=== PATIENT | female | born 1955 | race Caucasian/White ===

== ENCOUNTER 2016-10-29 03:46 | Emergency (ER) | payer OTHER ==
[~2016-10-29] VITALS: Ht 167.6 cm; Wt 82.4 kg
[~2016-10-29 03:46] MED LIST: HYDR25TA6 PO; LEVO100T PO; LIOT5TAB6 PO; LISI-167 PO
[2016-10-29] MEDS ORDERED: LOSARTIN (04:09)
[2016-10-29] MEDS ORDERED: DIPHENHYDRAMINE 25 MG CAPSULE ONE (04:12)
[2016-10-29] MEDS ORDERED: FAMOTIDINE 20 MG TABLET ONE (04:13)
[2016-10-29] MEDS ORDERED: ONDANSETRON ODT 4 MG ONE (04:21)
[2016-10-29] MEDS ORDERED: ONDANSETRON 0.8 MG/ML ORAL SOL PO ONE (04:30)
[2016-10-29] MEDS ORDERED: DIPHENHYDRAMINE 25 MG CAPSULE PO ONE (04:30)
[2016-10-29] MEDS ORDERED: FAMOTIDINE 20 MG TABLET PO ONE (04:30)
[2016-10-29 05:18] VITALS: BP 153/83
== END 2016-10-29 05:41 | disposition home or self-care (01) ==
LOC: ED 05:30
DX: T78.40XA Allergy, unspecified, initial encounter (principal); I10 Essential (primary) hypertension
CPT/HCPCS: 99284; J7512; Q0162; Q0163

== ENCOUNTER → 2019-06-06 | Outpatient (CLI) | payer MEDICARE ==
[~2019-06-06] MED LIST changes: +LIOT5TAB10 PO; -LIOT5TAB6 PO; +LOSARTIN
== END | disposition home or self-care (01) ==
LOC: CFH 08:09
PROVIDERS: ATTEND Internal Medicine Cardiovascular Disease
DX: I44.7 Left bundle-branch block, unspecified (principal); I44.4 Left anterior fascicular block; I10 Essential (primary) hypertension; R20.8 Other disturbances of skin sensation; R06.02 Shortness of breath
CPT/HCPCS: 78452; 93017; A9502